=== PATIENT | male | born 1970 | race Caucasian/White ===

== ENCOUNTER → 2024-02-20 06:22 | Day surgery (SDC) | payer OTHER, SELFPAY | LOC: GI 06:22 | PROVIDERS: ATTENDING PHYSICIAN Internal Medicine | DX: Z12.11 Encounter for screening for malignant neoplasm of colon (principal); K62.89 Other specified diseases of anus and rectum; D12.0 Benign neoplasm of cecum | CPT/HCPCS: 45385; 88305 ==